=== PATIENT | female | born 1995 | race Asian ===

== ENCOUNTER 2017-07-02 20:40 | Emergency (ER) | payer BC ==
[2017-07-02 21:31] LABS: BASO % 0 % (0-3); EOS % 0 % (0-3); HEMATOCRIT 40.9 % (36.0-47.0); HEMOGLOBIN 13.7 g/dL (12.0-15.5); LYMPH # 0.7 x10^3/uL (1.0-4.8); LYMPH % 5 % (24-48); MEAN CORPUSCULAR HEMOGLOBIN 30 pg (25-35); MEAN CORPUSCULAR HGB CONC 33 g/dL (31-37); MEAN CORPUSCULAR VOLUME 90 fL (79-100); MONO # 0.6 x10^3/uL (0.0-1.1); MONO % 4 % (0-9); NEUT # 14.7 x10^3uL (1.8-7.7); NEUT % 92 % (31-73); PLATELET COUNT 199 x10^3/uL (140-400); RED BLOOD COUNT 4.53 x10^6/uL (3.50-5.40); RED CELL DISTRIBUTION WIDTH 13.1 % (11.5-14.5)
[2017-07-02 21:38] LABS: ADD MAN DIFF? YES
[2017-07-02] MEDS: IV NORMAL SALINE 1000ML BAG 1,000 ML IV (21:45)
[2017-07-02] MEDS: ONDANSETRON PF 4 MG/2 ML VIAL. IV (21:45)
[2017-07-02] MEDS: fentaNYL PF VIAL 100 MCG/2 ML VIAL IV (21:45)
[2017-07-02 21:49] LABS: ANION GAP 11 (6-14); BLOOD UREA NITROGEN 10 mg/dL (7-20); BUN/CREATININE RATIO 17 (6-20); CARBON DIOXIDE 26 mmol/L (21-32); CHLORIDE 103 mmol/L (98-107); CREATININE 0.6 mg/dL (0.6-1.0); GFR 127.5; GLUCOSE 114 mg/dL (70-99); POTASSIUM 3.5 mmol/L (3.5-5.1); SODIUM 140 mmol/L (136-145)
[2017-07-02 21:54] LABS: ALBUMIN 3.9 g/dL (3.4-5.0); ALBUMIN/GLOBULIN RATIO 1.1 (1.0-1.7); ALK PHOS 53 U/L (46-116); ALT (SGPT) 46 U/L (14-59); AST (SGOT) 27 U/L (15-37); LIPASE 111 U/L (73-393); TOTAL BILIRUBIN 0.4 mg/dL (0.2-1.0); TOTAL PROTEIN 7.3 g/dL (6.4-8.2)
[2017-07-02] MEDS ORDERED: CONTRAST GIVEN MC (22:00)
[2017-07-02 22:08] LABS: BILIRUBIN,URINE NEGATIVE (NEG); CLARITY,URINE CLEAR; COLOR,URINE YELLOW; GLUCOSE,URINE NEGATIVE (NEG); NITRITE,URINE NEGATIVE (NEG); PH,URINE 6.5; PROTEIN,URINE NEGATIVE (NEG-TRACE); UROBILINOGEN,URINE 0.2 mg/dL (0.2 mg/dL)
[2017-07-02 22:24] LABS: BACTERIA,URINE 0 /HPF (0-FEW); RBC,URINE OCC /HPF (0-2); SQUAMOUS EPITHELIAL CELL,UR MOD /LPF; WBC,URINE OCC /HPF (0-4)
[2017-07-02] MEDS ORDERED: IOHEXOL 300 MG/ML 100ML VIAL. IV (22:30)
[2017-07-02 23:07] LABS: % BANDS 11 % (0-9); % LYMPHS 5 % (24-48); % MONOS 3 % (0-10); % SEGS 81 % (35-66); PLT ESTIMATE ADEQUATE (ADEQUATE)
[2017-07-05 07:33] LABS: URINE HCG POC HCG NEGATIVE (Negative)
== END 2017-07-02 23:35 | disposition home or self-care (01) ==
LOC: ER 20:40
DX: N83.201 Unspecified ovarian cyst, right side (principal); E86.0 Dehydration
CPT/HCPCS: 36415; 74177; 76856; 80053; 81001; 83690; 85007; 85025; 96361; 96374; 96375; 99285-25; J2405; J3010; J7030

== ENCOUNTER 2017-07-03 15:49 | Observation (INO) | payer BC ==
[2017-07-03 17:14] LABS: BASO % 0 % (0-3); EOS % 0 % (0-3); HEMATOCRIT 41.2 % (36.0-47.0); HEMOGLOBIN 13.6 g/dL (12.0-15.5); LYMPH # 0.9 x10^3/uL (1.0-4.8); LYMPH % 5 % (24-48); MEAN CORPUSCULAR HEMOGLOBIN 30 pg (25-35); MEAN CORPUSCULAR HGB CONC 33 g/dL (31-37); MEAN CORPUSCULAR VOLUME 91 fL (79-100); MONO # 0.6 x10^3/uL (0.0-1.1); MONO % 4 % (0-9); NEUT # 14.9 x10^3uL (1.8-7.7); NEUT % 91 % (31-73); PLATELET COUNT 190 x10^3/uL (140-400); RED BLOOD COUNT 4.54 x10^6/uL (3.50-5.40); RED CELL DISTRIBUTION WIDTH 13.1 % (11.5-14.5); WHITE BLOOD COUNT 16.4 x10^3/uL (4.0-11.0)
[2017-07-03 17:24] LABS: URINE HCG POC HCG NEGATIVE (Negative)
[2017-07-03 17:26] LABS: ANION GAP 14 (6-14); BLOOD UREA NITROGEN 8 mg/dL (7-20); BUN/CREATININE RATIO 11 (6-20); CALCIUM 8.6 mg/dL (8.5-10.1); CARBON DIOXIDE 23 mmol/L (21-32); CHLORIDE 102 mmol/L (98-107); CREATININE 0.7 mg/dL (0.6-1.0); GFR 106.7; GLUCOSE 89 mg/dL (70-99); POTASSIUM 3.7 mmol/L (3.5-5.1); SODIUM 139 mmol/L (136-145)
[2017-07-03 17:27] LABS: ADD MAN DIFF? YES; BILIRUBIN,URINE NEGATIVE (NEG); CLARITY,URINE CLOUDY; COLOR,URINE YELLOW; GLUCOSE,URINE NEGATIVE (NEG); NITRITE,URINE NEGATIVE (NEG); PH,URINE 6.5; PROTEIN,URINE NEGATIVE (NEG-TRACE)
[2017-07-03 17:29] LABS: ALBUMIN 3.7 g/dL (3.4-5.0); ALK PHOS 51 U/L (46-116); ALT (SGPT) 39 U/L (14-59); AST (SGOT) 21 U/L (15-37); LIPASE 98 U/L (73-393); TOTAL BILIRUBIN 0.8 mg/dL (0.2-1.0); TOTAL PROTEIN 7.5 g/dL (6.4-8.2)
[2017-07-03 17:37] LABS: BACTERIA,URINE FEW /HPF (0-FEW); RBC,URINE OCC /HPF (0-2); SQUAMOUS EPITHELIAL CELL,UR MANY /LPF; WBC,URINE OCC /HPF (0-4)
[2017-07-03 18:23] LABS: % BANDS 4 % (0-9); % BASOS 1 % (0-3); % LYMPHS 7 % (24-48); % MONOS 2 % (0-10); % SEGS 86 % (35-66); PLT ESTIMATE ADEQUATE (ADEQUATE)
[2017-07-03] MEDS: IBUPROFEN 800 MG TABLET. PO (19:11)
[2017-07-03] MEDS ORDERED: CONTRAST GIVEN MC (19:15)
[2017-07-03] MEDS: IOHEXOL 300 MG/ML 100ML VIAL. IV (19:15)
[2017-07-03] MEDS: IV NORMAL SALINE 1000ML BAG 1,000 ML IV ×2 (19:28→20:12)
[2017-07-03] MEDS ORDERED: ACETAMINOPHEN 325 MG TABLET. PO (19:30)
[2017-07-03 19:51] LABS: INFLUENZA A PATIENT NEGATIVE (NEGATIVE); INFLUENZA B PATIENT NEGATIVE (NEGATIVE); OBC FLU VALID
[2017-07-03] MEDS: ONDANSETRON PF 4 MG/2 ML VIAL. IV (20:10)
[2017-07-03] MEDS: fentaNYL PF VIAL 100 MCG/2 ML VIAL IV (20:11)
[2017-07-04] MEDS: PYRIDOXINE 50 MG TABLET. PO ×2 (01:04→20:52)
[2017-07-04] MEDS: ISONIAZID 300 MG TABLET PO ×2 (01:04→20:52)
[2017-07-04] MEDS: IV NORMAL SALINE 1000ML BAG 1,000 ML IV ×2 (01:06→11:30)
[2017-07-04 05:26] LABS: ADD MAN DIFF? NO
[2017-07-04 05:39] LABS: BASO % 0 % (0-3); EOS % 0 % (0-3); HEMATOCRIT 35.1 % (36.0-47.0); HEMOGLOBIN 11.7 g/dL (12.0-15.5); LYMPH # 1.3 x10^3/uL (1.0-4.8); LYMPH % 11 % (24-48); MEAN CORPUSCULAR HEMOGLOBIN 30 pg (25-35); MEAN CORPUSCULAR HGB CONC 33 g/dL (31-37); MEAN CORPUSCULAR VOLUME 91 fL (79-100); MONO # 0.7 x10^3/uL (0.0-1.1); MONO % 6 % (0-9); NEUT # 9.7 x10^3uL (1.8-7.7); NEUT % 83 % (31-73); PLATELET COUNT 162 x10^3/uL (140-400); RED BLOOD COUNT 3.85 x10^6/uL (3.50-5.40); RED CELL DISTRIBUTION WIDTH 13.3 % (11.5-14.5); WHITE BLOOD COUNT 11.8 x10^3/uL (4.0-11.0)
[2017-07-04 06:22] LABS: ANION GAP 9 (6-14); BLOOD UREA NITROGEN 7 mg/dL (7-20); CALCIUM 7.6 mg/dL (8.5-10.1); CARBON DIOXIDE 23 mmol/L (21-32); CHLORIDE 107 mmol/L (98-107); CREATININE 0.6 mg/dL (0.6-1.0); GFR 127.5; GLUCOSE 86 mg/dL (70-99); POTASSIUM 3.6 mmol/L (3.5-5.1); SODIUM 139 mmol/L (136-145)
== END 2017-07-05 13:10 | disposition home or self-care (01) ==
LOC: ER 15:49 → 5 SOUTH 19:31
DX: N83.201 Unspecified ovarian cyst, right side (principal); R76.11 Nonspecific reaction to tuberculin skin test without active tuberculosis; Z86.11 Personal history of tuberculosis; N39.0 Urinary tract infection, site not specified; D72.829 Elevated white blood cell count, unspecified
CPT/HCPCS: 36415; 71045; 80048; 80053; 81001; 81025; 83690; 85007; 85025; 87804; 87804-59; 96361; 96374; 96375; 99285-25; G0378; G0379; J2405; J3010; J7030